=== PATIENT | male | born 1940 | race Caucasian/White ===

== ENCOUNTER 2022-06-21 11:48 | Emergency (ER) | payer OTHER ==
[~2022-06-21 11:48] MED LIST: LIPITOR 10MG TA10 MG PO; MIRALAX17 GM PO
[2022-06-21 12:39] LABS: BASOPHIL 0.4 % (0-2); EOSINOPHIL 0.3 % (0-7); HCT 40.9 % (42.0-52.0); HGB 13.5 g/dl (13.2-18.0); LYMPHOCYTE 9.7 % (15-48); MCH 30.4 pg (25.0-31.0); MCV 92.1 fL (78.0-100.0); MONOCYTE 9.3 % (0-12); NRBC 0; PLT 331 K/uL (150-400); RBC 4.44 M/uL (4.70-6.00); RDW 13.8 % (11.5-14.0); WBC 7.7 K/uL (4.0-10.5)
[2022-06-21 12:52] LABS: ALBUMIN 3.4 g/dL (3.4-5.0); BILIRUBIN - TOTAL 0.8 mg/dL (0.2-1.0); BUN/CREAT RATIO (CALC) 17.5 RATIO; CREATININE 0.8 mg/dL (0.67-1.17); GLOBULIN (CALCULATION) 4.3 g/dL; TOTAL PROTEIN 7.7 g/dL (6.4-8.2)
[2022-06-21] MEDS ORDERED: DICLOFENAC SODI75 MG PO (14:52)
== END 2022-06-21 15:03 | disposition home or self-care (01) ==
LOC: FER 11:48
PROVIDERS: Emergency Medicine
DX: R07.89 Other chest pain (principal); I10 Essential (primary) hypertension; Z20.822 Contact with and (suspected) exposure to COVID-19
CPT/HCPCS: 36415; 71046; 80053; 84484; 85025; 85379; 93005; J1885; U0002